=== PATIENT | male | born 2000 | race Caucasian/White ===

== ENCOUNTER 2024-07-08 14:42 | Emergency (ER) | payer BC, SELFPAY ==
[2024-07-08 15:02] VITALS: BP 132/88
--- NOTE | 2024-07-08 15:51 | ED.SKININJ ---
HPI-Injury
General
Chief Complaint: Skin Surface Trauma
Source: patient
Exam Limitations: none
Time Seen by Provider: 07/08/24 15:51
Nursing documentation reviewed up to this point in time: agreed with
History of Present Illness-Injury
Is this injury a work related problem?: No
Is pt an associate of [facility]/[place]?: No
Initial Injury comments:
Patient states he cut thumb while using mandolin. Has a superficial avulsion injury to right distal thumb Injury occurred just [employer]
Past History
Past History
ED Past Medical History: None
Review of Systems
Review of Systems
Allergies reviewed?: Yes
All Other Systems: ROS reviewed and negative except as documented in HPI and ROS
Constitutional: Reports no symptoms
Musculoskeletal: Reports no symptoms
Skin: Reports other (Superficial avulsion injury right distal thumb)
Neurological: Reports no symptoms
Psychiatric: Reports no symptoms
Skin Exam
Avulsion
Right Distal Thumb:
Type of avulsion injury: superfical
Any active bleeding?: low grade venous oozing
Distal skin color and temperature: normal-warm & good color
Normal distal neurovascular exam: Yes
Phy Exam
General Physical Exam
General Presentation: well appearing and no apparent distress
General age: appears stated age
General Skin: warm and dry
General Habitus: normal
General Mental: alert
Musculoskeletal Exam
Musculoskeletal Exam: full ROM and neuro vasc intact
Skin Exam
Skin Exam: normal color, warm/dry and no rash
Psychiatric Exam
Psychiatric Exam: normal mood/affect
Course
Vital Signs
Initial and Last Documented VS:
Initial Vital Signs
Temp Pulse Resp BP Pulse Ox
98.9 F 76 16 132/88 100
07/08/24 15:02 07/08/24 15:02 07/08/24 15:02 07/08/24 15:02 07/08/24 15:02
Last Documented Vital Signs
Temp Pulse Resp BP Pulse Ox
98.9 F 76 16 132/88 100
07/08/24 15:02 07/08/24 15:02 07/08/24 15:02 07/08/24 15:02 07/08/24 15:02
*Critical Care Note
Total Time (30-74mins, 75-104mins- exclusive of procedures): Not Applicable
Update Note
Update Note:
Wound cleansed with NSS, dried, gelfoam applied. Bleeding has stopped. Gauze wrap applied. He is discharged home and he will follow up with PCP. Unsure of last tetanus but will check with PCP tomorrow.
ED Attending Note
-
Portions of this chart may have been created with voice recognition software.� Occasional wrong word or��sound alike� substitutions may have occurred due to the inherent limitations of voice recognition software.
Discharge Plan
Departure
Patient Disposition: Home (Routine Discharge)
Date of Disposition: 07/08/24
Time of Disposition: 15:55
Patient with high blood pressure during this ER visit?: No
Condition: Good
Covid-19: Not Applicable
Discharge Problem:
Avulsion of skin
Instructions: Common Finger Injuries ED
Activity Restrictions/Additional Instructions:
Keep wound elevated and dry for the next 24 hours Do not remove gelfoam pad.
Interventions
Interventions:
*Risk Screen - Suicide Last Done: 07/08/24 15:02
*General Assessment Last Done: 07/08/24 15:02
*Neglect/Abuse Screening Last Done: 07/08/24 15:02
*ED COVID-19 Vaccine History Last Done: 07/08/24 15:02
*Nursing Disposition Last Done: 07/08/24 16:13
Discharge Date and Time
Discharge Date/Time: 07/08/24 16:13
Print Language: SRI LANKAN
== END 2024-07-08 16:13 | disposition home or self-care (01) ==
LOC: EMR 14:42
PROVIDERS: EMERGENCY PHYSICIAN Emergency Medicine; FAMILY PHYSICIAN Internal Medicine
DX: S61.011A Laceration without foreign body of right thumb without damage to nail, initial encounter (principal); W27.4XXA Contact with kitchen utensil, initial encounter
CPT/HCPCS: 99282